=== PATIENT | female | born 1960 | race Two or more races ===

== ENCOUNTER 2022-07-11 12:51 | Day surgery (SDC) | payer OTHER ==
[~2022-07-11] VITALS: Ht 157.5 cm; Wt 80.9 kg
[~2022-07-11 12:51] MED LIST: CALCIUM500 MG PO; DAILY VALUE1 EACH PO; ESCITALOPRAM OX20 MG PO; VITAMIN C 500500 M1 PO
[2022-07-11 13:30] VITALS: BP 141/70
--- NOTE | 2022-07-11 15:24 | NUR ---
07/11/22 Angela4 Lalita Rouse SN 1518 PATIENT ARRIVES TO PACU SLEEPING LIGHT SNORE. AWAKENS WITH VERBAL STIMULI. BACK TO SLEEP WHEN NOT STIMULATED. RESP EVEN AND UNLABORED. O2 SAT >95% ON ROOM AIR. NEEDS OCCASIONAL REMINDER TO TAKE A DEEP BREATH.
[2022-07-11 16:34] VITALS: BP 144/65
--- NOTE | 2022-07-12 10:59 | OR ---
[facility] [address] [place], [place] [address] Signed DATE OF OPERATION: 07/11/2022 SURGEON: Mark Kirby MD PREOPERATIVE DIAGNOSIS: Colon screening. POSTOPERATIVE DIAGNOSIS: 1.5 cm pedunculated polyp x2, 25 and 35 cm. PROCEDURE: Total colonoscopy to cecum with hot snare polypectomy x2. ANESTHESIA: Intravenous sedation, fentanyl 100 mcg, Versed 6 mg. INDICATION: This 61-year-old woman is a patient of Dr. Ramires. She has never had colonoscopy in the past and is referred for screening colonoscopy. She has no family history of colon cancer. No symptoms of bleeding, diarrhea or constipation. She understands the risks of bleeding, infection, and perforation related to colonoscopy and wished to proceed. FINDINGS: The prep was good. Complete colonoscopy was undertaken to the cecum. Intubation of the ileum was accomplished as well, which was also normal. She had two pedunculated polyps, one at 35 cm, other at 25 cm, both excised with hot snare polypectomy technique. The remaining colon and rectum were normal. PROCEDURE IN DETAIL: The patient was brought to the endoscopy suite and placed in lateral decubitus position given intravenous sedation to the point of slurred speech and nystagmus. Digital rectal examination was normal. An Olympus video colonoscope was passed in the rectum and manipulated throughout the colon ultimately intubating the cecum itself. Easy intubation of the ileum was accomplished as well. The scope was withdrawn and examination throughout was undertaken showing no sign of abnormality until approximately 35 cm from the anal canal where a highly violaceous pedunculated polyp approximately 1.5 cm was seen. This was excised with hot snare polypectomy technique and retrieved and the scope then reintroduced. The Electronically Signed By: MARK KIRBY MD 07/12/22 1059 PATIENT NAME: GAGAN BARRIENTOS OPERATIVE REPORT DATE OF : 64 REPORT #: [id number] PHYSICIAN: MARK KIRBY MD PCP: DOMINIC RAMIRES MD REPORT IS CONFIDENTIAL AND NOT TO BE RELEASED WITHOUT AUTHORIZATION [facility] [address] [place], [place] [address] Signed polypectomy site was hemostatic. The scope was withdrawn from that point and another polyp of similar size and appearance was noted at 25 cm. It too was excised with hot snare polypectomy technique, was explanted and passed for pathology. The introduction of scope yet again was undertaken and withdrawal of scope showed no other abnormality. Retroflexed view of the rectum was normal. Scope was removed. The patient was taken to the recovery room in good condition. CONCLUDING DIAGNOSIS: Polyps x2, both excised. PLAN: Recommend repeat colonoscopy in three years based on the findings. Procedure could be repeated sooner if symptoms should occur. MD INO Mir/GUNNER /[id number] cc: Dominic Ramires Copies: ~ Electronically Signed By: MARK KIRBY MD 07/12/22 1059 PATIENT NAME: GAGAN BARRIENTOS OPERATIVE REPORT DATE OF : 64 REPORT #: [id number] PHYSICIAN: MARK KIRBY MD PCP: DOMINIC RAMIRES MD REPORT IS CONFIDENTIAL AND NOT TO BE RELEASED WITHOUT AUTHORIZATION
--- NOTE | 2022-07-13 11:50 | PATH ---
[facility] [address] [place], [place] [address] Signed SPECIMEN(S): A COLON POLYP AT 35 CM SPECIMEN(S): B COLON POLYP AT 25 CM SPECIMEN SOURCE: A. COLON POLYP AT 35 CM B. COLON POLYP AT 25 CM CLINICAL HISTORY: Screening colon. Postop: Polyps x2. FINAL PATHOLOGIC DIAGNOSIS: A. Colon polyp at 35 cm, polypectomy: - Tubular adenoma. - Negative for high-grade dysplasia and malignancy. B. Colon polyp at 25 cm, polypectomy: - Tubular adenoma. - Negative for high-grade dysplasia and malignancy. DF:levic:C2NR MICROSCOPIC EXAMINATION: Histologic sections of all submitted blocks are examined by light microscopy. These findings, together with the gross examination, support the pathologic diagnosis. GROSS DESCRIPTION: A. The specimen, labeled and designated "Diego, colon polyp at 35 cm," is received in formalin and consists of one polyp of brown-rodgers, soft tissue (1.0 x 0.6 x 0.5 cm). The resection margin is inked blue, and the tissue is bisected to reveal a red-brown, soft cut surface. The specimen is submitted entirely in cassette (A1). B. The specimen, labeled and designated "Barrientos, colon polyp at 25 cm," is received in formalin and consists of one polyp of brown-rodgers, soft tissue (1.0 x 0.8 x 0.7 cm). The resection margin is inked blue, and the tissue is trisected to reveal a red-brown, soft cut surface. The specimen is submitted entirely in cassette (B1). VB (under the direct supervision of a pathologist) The Gross Description was prepared using a voice recognition system. The report was reviewed for accuracy; however, sound-alike word errors, addition and/or deletions may occur. If there is any question about this report, please contact Client Services. PATIENT NAME: GAGAN BARRIENTOS PATHOLOGY DATE OF : 64 REPORT #: [id number] PHYSICIAN: LAMAR ADKINS PCP: BRITT COHEN MD REPORT IS CONFIDENTIAL AND NOT TO BE RELEASED WITHOUT AUTHORIZATION [facility] [address] [place], [place] [address] Signed PERFORMING LABORATORY: The technical component was performed by [employer], [address] [place] [address] (CLIA# [id number]). Professional interpretation was performed by [employer], [facility], [address] [place] [id number] (CLIA#: [id number]) Diagnostician: Eflego Domingo DO Pathologist Electronically Signed 07/13/2022 Copies: ~ PATIENT NAME: GAGAN BARRIENTOS PATHOLOGY DATE OF : 64 REPORT #: [id number] PHYSICIAN: LAMAR PATHOLOGY PCP: BRITT COHEN MD REPORT IS CONFIDENTIAL AND NOT TO BE RELEASED WITHOUT AUTHORIZATION
== END 2022-07-11 16:33 | disposition home or self-care (01) ==
LOC: OPS 12:51 → DS 13:03 → OPS 14:00
PROVIDERS: ATTEND Surgery
DX: Z12.11 Encounter for screening for malignant neoplasm of colon (principal); D12.6 Benign neoplasm of colon, unspecified; Z88.6 Allergy status to analgesic agent; Z79.899 Other long term (current) drug therapy
CPT/HCPCS: 99153; G0500; J2250; J3010; J7121